=== PATIENT | female | born 1940 | race Caucasian/White ===

== ENCOUNTER 2025-03-31 06:37 | Emergency (ER) | payer MEDICARE, MEDICAID ==
[~2025-03-31] VITALS: Ht 157.5 cm; Wt 72.7 kg
[2025-03-31 07:02] VITALS: TEMP 97.8
[2025-03-31] MEDS ORDERED: EMPA10TA PO (07:34)
[2025-03-31] MEDS ORDERED: SITA100T15 PO (07:34)
[2025-03-31] MEDS ORDERED: GABA-530 PO (07:34)
[2025-03-31] MEDS ORDERED: SODI100035 PO (07:34)
--- NOTE | 2025-03-31 08:20 | Physician Documentation ---
History of Present Illness General Chief Complaint: Itching Stated Complaint: ALL OVER BODY ITCH Time Seen by MD: 08:13 History of Present Illness Initial Comments The patient is a 84-year-old female with a history of type 2 diabetes who has been on metformin for a long time. Over the past several days she has developed itching of both palms. She has no new medication exposures she has not been eating anything unusual, she reports. She has no prior history of significant allergies in no prior history of hand itching. Medication Reconciliation Allergies: Coded Allergies: No Known Allergies (Unverified , 03/31/25) Scheduled Empagliflozin (Jardiance), 1 TAB PO DAILY, (Reported) Gabapentin (Gabapentin), 1 CAP PO DAILY, (Reported) Sitagliptin Phosphate* (Januvia*), 1 TAB PO DAILY, (Reported) Sodium Chloride (Sodium Chloride), 2 TAB PO DAILY, (Reported) Review of Systems ROS Constitutional: Denies chills, fatigue, fever, weight gain or weight loss. HEENT: Denies hearing loss, sinus pressure or visual changes. Respiratory: Denies cough, shortness of breath or wheezing. Cardiovascular: Denies chest pain, pain while walking (claudication), edema or palpitations. Gastrointestinal: Denies abdominal pain, blood in stool, constipation, diarrhea, heartburn, loss of appetite, nausea or vomiting. Genitourinary: Denies painful urination (dysuria), excessive amount of urine (polyuria) or urinary frequency. Metabolic/Endocrine: Denies cold intolerance, heat intolerance, excessive thirst (polydipsia) or excessive hunger (polyphagia). Neurological: Denies dizziness, extremity numbness, extremity weakness, headaches, seizures or tremors. Psychiatric: Denies anxiety or depression. Integumentary: Bilateral itching of palms Musculoskeletal: Denies back pain, joint pain, joint swelling or neck pain. Hematologic: Denies easily bleeding, easily bruises, lymphedema or issues with blood clots. Immunologic: Denies food allergies or seasonal allergies. Physical Exam Physical Exam Vital Signs: Temperature: 97.8, Source: Temporal, Heart Rate: 75, Respiratory Rate: 15, BP: 140/69, Pulse Oximetry: 97, Weight: 72.730 Oxygen Flow Rate: 0 Physical Exam Physical Exam Vitals and nursing note reviewed. Constitutional: General: Patient is awake, alert, oriented x 4 in no acute distress and well appearing. Speech is clear and lucid. Appearance: Normal appearance. Patient is not ill-appearing, toxic-appearing or diaphoretic. HENT: Head: Normocephalic and atraumatic. Mouth/Throat: Mouth: Mucous membranes are moist. Pharynx: Oropharynx is clear. Eyes: General: No scleral icterus. Extraocular Movements: Extraocular movements intact. Pupils: Pupils are equal, round, and reactive to light. Cardiovascular: Rate and Rhythm: Normal rate and regular rhythm. Heart sounds: No murmur heard. Pulmonary: Effort: No respiratory distress. Breath sounds: No wheezing, rhonchi or rales. Abdominal: General: There is no distension. Palpations: There is no fluid wave, hepatomegaly or mass. Tenderness: There is no abdominal tenderness. There is no guarding. Musculoskeletal: General: No swelling or deformity. Skin: Coloration: Skin is not jaundiced. Findings: Faint erythema of both palms. Neurological: Mental Status: Patient is alert. Progress Results/Orders Results/Orders Vital Signs 03/31/25 03/31/25 06:40 07:02 Temp 97.8 97.8 Pulse 86 75 Resp 16 15 B/P (MAP) 168/70 140/69 (92) Pulse Ox 99 97 O2 Flow Rate 0 0 Medical Decision Making Findings This 84-year-old lady presents with bilateral palm itching without any new exposures. Her lungs are clear. She has no oral involvement. I am going to recommend a trial of Benadryl at home. Departure Disposition: HOME / SELF CARE / HOMELESS Impression: Primary Impression: Itching of both hands Condition: Stable Additional Instructions: Please take Benadryl 25 mg every 6 hours, as needed. Referrals: NO PRIMARY CARE PROVIDER (PCP) Signature Scribe Signature: . Attestation: . ADA NI MD Mar 31, 2025 08:20
[2025-03-31 08:54] VITALS: BP 156/66; PULSE 78; RESP 16; O2SAT 96
== END 2025-03-31 08:58 | disposition home or self-care (01) ==
LOC: ER 06:39
DX: L29.9 Pruritus, unspecified (principal); E11.9 Type 2 diabetes mellitus without complications; Z79.84 Long term (current) use of oral hypoglycemic drugs
CPT/HCPCS: 99282